=== PATIENT | male | born 1955 | race Caucasian/White ===

== ENCOUNTER → 2021-05-16 | Outpatient (CLI) | payer OTHER ==
[~2021-05-16] MED LIST: ALLEGRA ALLERG180 MG PO; BYSTOLIC 5 MG5 M1 PO; CRESTOR10 MG PO; TRAMADOL 50 MG50 MG PO
== END ==
LOC: M.CT 14:00
PROVIDERS: ATTEND Family Medicine
DX: Z13.6 Encounter for screening for cardiovascular disorders (principal); I25.10 Atherosclerotic heart disease of native coronary artery without angina pectoris

== ENCOUNTER → 2021-05-16 | Outpatient (CLI) | payer OTHER | LOC: M.ULTRA 13:55 | PROVIDERS: ATTEND Family Medicine | DX: I65.23 Occlusion and stenosis of bilateral carotid arteries (principal) ==